=== PATIENT | female | born 1995 | race Caucasian/White ===

== ENCOUNTER 2018-06-09 09:58 | Emergency (ER) | payer BC ==
--- OUTSIDE RECORDS SUMMARY | 2018-06-09 10:26 | XMS REPORT | Continuity of Care Document ---
:1995 External Reference #:[id number] Author Name MILTON Pandya Address [address] [place] [address] Care Team Providers Name Role Phone MILTON Pandya Care Team Information Supervisor Orchard Unavailable Payers Type Date Identification Numbers Payment Provider Subscriber Policy Number: [id number] [facility] Jonathan Vega Group Name: BC/BS of [facility] [address] [address] PayID: [id number] ZAN Borrego [id number] Advance Directives Description No Information Available Problems Description No Information Family History Description No Information Available Social History Type Date Description Comments Sex Unknown Education Highest level completed, 12th grade Education Currently working on [employer] and bachelor's degree women's studies Education Highest level liberal arts, general completed, Associates studies Degree Lives With Mother And Father Jose during the school year Diet Healthy, Well Balanced eats better at home, has breakfast every morning, she has sandwich for lunch, dinner is pasta. 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 Tobacco Use Start: Unknown Never Smoked Cigarettes Smoking Status Reviewed: Never Smoked 05/26/18 Cigarettes ETOH Use Occasionally consumes alcohol Recreational Drug Use Denies Drug Use Enjoy Exercising Enjoys exercising aerobics and weights 2-3 times per week Currently Active Patient is currently sexually active Condom Use Always Allergies, Adverse Reactions, Alerts Date Description Reaction Status Severity Comments 10/28/2014 Amoxicillin Active rash Medications Medication Date Status Form Strength Qnty SIG Indications Ordering Provider Clarithromycin 05/26/ Hx Tablets 500mg 20tab 1 by mouth J01.90 Abril 2018 - s twice a day Ami Pineda, 06/05/ for MILTON 2018 sinusitis Triamcinolone 01/22/ Active Cream 0.5% 15gm Apply 1 L23.7 Nu Acetonide 2017 application Shortle, topically to ACTING PROFESSOR affected area 2 times per day Valacyclovir HCL 11/24/ Active Tablets 500mg 60tab Take 1 B00.1 Arden 2017 s tablet by Heetmolly mouth daily , Valtrex 06/24/ Active Tablets 500mg 30tab Take 1 Abril 2015 s Tablet By Ami Pineda, Mouth Two PROTOTYPE ENGINEER-C Times Daily For 5 Days If Needed Lysine 02/14/ Active Tablets 500mg daily Makangela 2015 Ami Pineda, PROTOTYPE ENGINEER-C Cipro 04/09/ Hx Tablets 250mg 10tab 1 pill by N39.0 Abril 2015 - s mouth twice Ami Pineda, 04/14/ a day for 5 PROTOTYPE ENGINEER-C 2015 days for urine infection Pyridium 03/28/ Hx Tablets 100mg 10tab 1 tab by N39.0 Arden 2015 - s mouth three Heetderks 11/24/ times a day , 2018 as needed Bactrim DS 03/28/ Hx Tablets 800-160mg 10tab take 1 N39.0 Arden 2015 - s tablet by Heetmolly 04/09/ mouth every , 2016 12 hours for 5 Orsythia 10/28/ Hx Tablets 0.1-20mg-m 84tab 1 by mouth Abril 2014 - cg s daily Ami Pineda, 11/24/ PROTOTYPE ENGINEER-C 2017 Immunizations CPT Code Status Date Vaccine Lot # [id number] Given 02/15/2016 HPV Vaccine 9 (Gardasil 9), 3 Dose [id number] 07745 Given 02/15/2016 Menb - Serogroup B Meningococcal Vaccine(Trumenba) [id number] 68159 Given 04/05/2013 Menactra (meningococcal conjugate vaccine) 12062 Given 10/16/2011 Varicella (Chicken Pox) Vaccine 05144 Given 09/17/2010 Hepatitis A (Ped) 2 Dose Schedule 83693 Given 06/15/2008 Flumist, Influenza Vaccine Quadrivalent, Live For Intranasal Use 23469 Given 06/15/2008 Hepatitis A (Ped) 2 Dose Schedule 38150 Given 02/18/2007 Menactra (meningococcal conjugate vaccine) 59394 Given 02/18/2007 Tdap (Adacel) 31555 Given 11/10/2000 Varicella (Chicken Pox) Vaccine 13513 Given 11/10/2000 Inactivated Polio Vaccine, Injectable (Ipol) 69587 Given 11/10/2000 MMR (Measles,Mumps,Rubella) 38018 Given 11/10/2000 DTaP (Daptacel) 00789 Given 03/01/1997 Hib (Hemophilus Influenza B) (Acthib) 57356 Given 03/01/1997 DTaP (Daptacel) 75587 Given 12/08/1996 MMR (Measles,Mumps,Rubella) 80894 Given 06/28/1996 Hep B Vaccine, Ped/Adol Dose 3 Dose (Engerix or Recombivax) 48149 Given 06/28/1996 Opv (Poliovirus,Oral) 35319 Given 06/28/1996 DTaP (Daptacel) 48799 Given 06/28/1996 Hib (Hemophilus Influenza B) (Acthib) 41721 Given 04/26/1996 DTaP (Daptacel) 30174 Given 01/27/1996 Hep B Vaccine, Ped/Adol Dose 3 Dose (Engerix or Recombivax) 77189 Given 01/27/1996 Opv (Poliovirus,Oral) 94340 Given 01/27/1996 DTaP (Daptacel) 33758 Given 01/27/1996 Hib (Hemophilus Influenza B) (Acthib) 35131 Given 1995 Hep B Vaccine, Ped/Adol Dose 3 Dose (Engerix or Recombivax) Vital Signs Date Vital Result Comment 05/26/2018 11:55am Weight 112.00 lb Weight 50.803 kg BP Systolic 100 mmHg BP Diastolic 60 mmHg Heart Rate 77 /min Body Temperature 97.5 F Respiratory Rate 16 /min O2 % BldC Oximetry 97 % 01/22/2018 11:04am Weight 109.00 lb Weight 49.442 kg BP Systolic 100 mmHg BP Diastolic 62 mmHg Heart Rate 76 /min Body Temperature 98.1 F Respiratory Rate 12 /min 11/24/2017 3:46pm Weight 114.00 lb Weight 51.710 kg BP Systolic 100 mmHg BP Diastolic 70 mmHg Heart Rate 92 /min Body Temperature 98.4 F Height 64 inches 5'4" BMI (Body Mass Index) 19.6 kg/m2 O2 % BldC Oximetry 98 % 03/28/2016 10:52am Weight 115.00 lb Weight 52.164 kg BP Systolic 104 mmHg BP Diastolic 72 mmHg Heart Rate 76 /min Body Temperature 98.2 F Respiratory Rate 16 /min 02/15/2016 1:33pm Weight 110.00 lb Weight 49.896 kg BP Systolic 93 mmHg BP Diastolic 68 mmHg Heart Rate 66 /min Height 64 inches 5'4" BMI (Body Mass Index) 18.9 kg/m2 Last Menstrual Period [id number] 01/12/2016 8:14am Weight 109.00 lb Weight 49.442 kg BP Systolic 80 mmHg BP Diastolic 59 mmHg Heart Rate 99 /min Body Temperature 102.5 F O2 % BldC Oximetry 99 % 10/28/2014 8:44am Weight 109.00 lb Weight 49.442 kg BP Systolic 90 mmHg BP Diastolic 60 mmHg Heart Rate 76 /min Height 64 inches 5'4" Height Percentile 46 % Weight Percentile 15th BMI (Body Mass Index) 18.7 kg/m2 Body Mass Index Percentile 13 % Results Test Date Facility Test Result H/L Range Note Urine DIP 03/28/2016 In House Lab Leukocytes ++ Neg (607)- - Urine Nitrites NEG Neg Urobilinogen NORM Norm Total Protein, Urine 100 High Neg Urine pH 5 5-6 Urine Blood 250 High Neg Specific [place] 1.02 1.01-1.02 Urine Ketones NEG Neg Urine Bilirubin NEG Neg Urine Glucose NORM Norm GC/Chlamydia 02/15/2016 [facility] Chlamydia Negative Negative Amplified Rna [phone] trachomatis Rna Neisseria gonorrhoeae (GC) Rna Negative Negative CBC Auto Diff 02/15/2016 [facility] White Blood 4.7 10^3/uL 3.5-10.8 [phone] Count Red Blood Count 4.48 10^6/uL 4.0-5.4 Hemoglobin 13.5 g/dL 12.0-16.0 Hematocrit 41 % 35-47 Mean Corpuscular Volume 90 fL 80-97 Mean Corpuscular Hemoglobin 30 pg 27-31 Mean Corpuscular HGB Conc 33 g/dL 31-36 Red Cell Distribution Width 15 % 10.5-15 Platelet Count 301 10^3/uL 150-450 Mean Platelet Volume 8 um3 7.4-10.4 Abs Neutrophils 2.6 10^3/uL 1.5-7.7 Abs Lymphocytes 1.7 10^3/uL 1.0-4.8 Abs Monocytes 0.2 10^3/uL 0-0.8 Abs Eosinophils 0.1 10^3/uL 0-0.6 Abs Basophils 0 10^3/uL 0-0.2 Abs Nucleated RBC 0.01 10^3/uL Granulocyte % 56.8 % 38-83 Lymphocyte % 36.4 % 25-47 Monocyte % 5.3 % 1-9 Eosinophil % 1.2 % 0-6 Basophil % 0.3 % 0-2 Nucleated Red Blood Cells % 0.2 Comp Metabolic Panel 02/15/2016 [facility] Sodium 140 mmol/L 133-145 [phone] Potassium 4.0 mmol/L 3.5-5.0 Chloride 104 mmol/L 101-111 Co2 Carbon Dioxide 27 mmol/L 22-32 Anion Gap 9 mmol/L 2-11 Glucose 113 mg/dL High 70-100 Blood Urea Nitrogen 13 mg/dL 6-24 Creatinine 0.85 mg/dL 0.51-0.95 BUN/Creatinine Ratio 15.3 8-20 Calcium 9.4 mg/dL 8.6-10.3 Total Protein 7.1 g/dL 6.4-8.9 Albumin 4.2 g/dL 3.2-5.2 Globulin 2.9 g/dL 2-4 Albumin/Globulin Ratio 1.4 1-3 Total Bilirubin 0.60 mg/dL 0.2-1.0 Alkaline Phosphatase 52 U/L 34-104 Alt 10 U/L 7-52 Ast 14 U/L 13-39 Egfr Non- 85.3 >60 Egfr 109.7 >60 1 Laboratory test 02/15/2016 [facility] TSH (Thyroid 0.95 ?IU/mL 0.34-5.60 2 finding [phone] Stim Horm) Vitamin B12 203 pg/mL 180-914 3 Vitamin D Total 25(Oh) 39.9 ng/mL 30-50 4 HIV 1/2 AB 02/15/2016 [facility] HIV 1 2 Nonreactive Nonreactive 5 Evaluation [phone] Antibody Laboratory 02/15/2016 [facility] Syphillis Igg Nonreactive Nonreactive 6 test finding [phone] W/Reflex RPR Hepatitis C Antibody Nonreactive Nonreactive 7 Laboratory test 01/12/2016 [facility] Culture Throat SEE RESULT 8 finding [phone] BELOW Laboratory test 01/12/2016 In House Lab Strep Screen neg Neg finding (607)- - 1 Because ethnic data is not always readily available, this report includes an eGFR for both -Americans and non- Americans. The National Kidney Disease Education Program (NKDEP) does not endorse the use of the MDRD equation for patients that are not between the ages of 18 and 70, are , have extremes of body size, muscle mass, or nutritional status, or are non- or non-. According to the National Kidney Foundation, irrespective of diagnosis, the stage of the disease is based on the level of kidney function: Stage Description GFR(mL/min/1.73 m(2)) 1 Kidney damage with normal or decreased GFR 90 2 Kidney damage with mild decrease in GFR 60-89 3 Moderate decrease in GFR 30-59 4 Severe decrease in GFR 15-29 5 Kidney failure <15 (or dialysis) 2 [id number] 3 Normal Range 180 to 914 Indeterminate Range 145 to 180 Deficient Range <145 4 [id number] 5 It is recognized that currently available assays for the detection of antibodies to HIV-1 and/or HIV-2 may not detect all infected individuals. HIV antibodies may be undetectable in some stages of the infection and in some clinical conditions. The performance of this assay has not been established for populations of infants or children. Assayed by Chemiluminescence Microparticle Immunoassay on the Siemens Advia Centaur CP. Values obtained with different methods or kits cannot be used interchangeably.The diagnostic specificity of the ADVIA Centaur 1/O/2 Enhanced assay in the low risk population was 99.90% (6052/6058) with a 95% confidence interval of 99.78 to 99.96%. 6 Warning: A positive result is not useful for establishing a diagnosis of syphilis. In most situations, such a result may reflect a prior treated infection; a negative result can exclude a diagnosis of syphilis except for incubating or early primary disease. 7 [id number] 8 SEE RESULT BELOW Name: BECKI VEGA : [address]: Sivakumar Martinez III ACTING PROFESSOR Acct: [id number] Unit: [id number] AGE: 20 Location: [facility] Re01/12/16 SEX: F Status: REG REF SPEC: [id number] JEN: 01/12/16-[address]: Sivakumar Martinez III, NP REQ: [id number] RECD: 01/12/16123 STATUS: COMP _ SOURCE: THROAT SPDESC: ORDERED: Throat Culture COMMENTS: [id number] Procedure Result Reported Site Throat Culture Final 01/14/16- 1114 ML Organism 1 STREP GROUP C Quantity 3+ Organism 2 NORMAL SEBLE Quantity 3+ Throat cultures are clinically indicated to detect the presence of group A strep, arcanobacterium and yeast. In certain cases, predominating organisms will be reported. * ML - MAIN LAB ([facility]) . END OF REPORT * ML=Testing performed at Main Lab DEPARTMENT OF PATHOLOGY, [address] [place] [address] Juancarlos Valdez M.D. 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 Office Visit 03/28/2016 Main Office Arden Arvizu, N39.0 Urinary tract 10:45a infection, site not specified Office Visit 02/15/2016 Main Office Abril Pineda, Z00.00 Encntr for general 1:30p GRACE-Zahraa adult medical exam w/o abnormal findings Z23 Encounter for immunization Office Visit 01/12/2016 8:15a Main Office Sivakumar Martinez J02.9 Acute pharyngitis, III, GRACE-C unspecified Office Visit 10/28/2014 8:45a Main Office Abril Mueller V70.0 Examination General MILTON Pineda Medical Routine AT [facility] Facility Plan of Treatment 05/26/2018 - GRACE Pandya-CJ01.90 Acute sinusitis, unspecifiedNew Medication:Clarithromycin 500 mg - 1 by mouth twice a day for sinusitisComments: will treat with Biaxin, encourage fluids, rest and neti pot rinses as well ... should get flu vaccine after she completes abx course
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
[2018-06-09 12:29] VITALS: BP 116/84
== END 2018-06-09 12:27 | disposition home or self-care (01) ==
LOC: ED 09:58
DX: S80.02XA Contusion of left knee, initial encounter (principal); V43.54XA Car driver injured in collision with van in traffic accident, initial encounter; Y92.488 Other paved roadways as the place of occurrence of the external cause
CPT/HCPCS: 99282